=== PATIENT | male | born 1980 | race Caucasian/White ===

== ENCOUNTER 2019-03-03 09:52 | Emergency (ER) | payer MEDICAID ==
[~2019-03-03] VITALS: Ht 165.1 cm; Wt 77.1 kg
[2019-03-03 09:48] VITALS: BP 121/62
[~2019-03-03 09:52] MED LIST: NKM
[2019-03-03 11:21] LABS: APPEARANCE,URINE CLEAR; BILIRUBIN, URINE NEGATIVE (NEGATIVE); COLOR,URINE PALE YELLOW; GLUCOSE, URINE (UA) NEGATIVE (NEGATIVE); KETONES,URINE NEGATIVE (NEGATIVE); LEUKOCYTE ESTERASE ,URINE NEGATIVE (NEGATIVE); NITRITE,URINE NEGATIVE (NEGATIVE); PH,URINE 6 (4.5-8.0); PROTEIN,URINE NEGATIVE (NEGATIVE); UROBILINOGEN,URINE NORMAL MG/DL (0.0-1.0)
[2019-03-03] MEDS ORDERED: DOXYCYCLINE MO100 MG ORAL (13:11)
--- NOTE | 2019-03-03 13:13 | Emergency Room Report ---
History of Present Illness General Chief Complaint: Pain Source: Patient Present Illness HPI 38-year-old homeless male states he has testicular pain that is been going on for1 day duration aching in sensation. Patient states to me is been treated for "endotheliitis" of his testicle with antibiotics at another hospital 2 weeks ago. He states the pain is the same. He is tried to ejaculate to relieve pain with no improvement. He he notes associated dysuria. However he denies any fevers chills, hematuria, abdominal pain. He denies any trauma to the testicle or penis. He denies any recent new sexual partners and denies any history of sexually transmitted infections Allergies: Coded Allergies: No Known Allergies (Unverified , 03/03/19) Patient History Past Medical History: none, psych hx - Bipolar Past Surgical History: none Nursing Documentation-[facility] Past Medical History: No History, Except For History Of Psychiatric Problem: Yes - Bipolar Review of Systems Constitutional: Denies: chills, fever Respiratory: Denies: cough, shortness of breath Cardiovascular: Denies: chest pain, palpitations Gastrointestinal: Denies: abdominal pain, diarrhea, vomiting Genitourinary: Reports: dysuria; Denies: hematuria, pain Musculoskeletal: Denies: back pain, joint swelling Skin: Denies: rash, lesions Neurological: Denies: headache, dizziness Physical Exam Vital Signs Date Time Temp Pulse Resp B/P (MAP) Pulse Ox O2 Delivery O2 Flow Rate FiO2 03/03/19 09:41 97.5 104 16 121/62 (81) 100 Room Air Sp02 EP Interpretation: reviewed General Appearance: well appearing, no apparent distress, non-toxic Head: normocephalic, atraumatic Eyes: bilateral eye normal inspection ENT: hearing grossly normal, EOM grossly intact, moist mucus membranes Neck: supple Respiratory: lungs clear, normal breath sounds, no respiratory distress, speaking full sentences Cardiovascular #1: regular rate, rhythm, normal capillary refill Cardiovascular #2: 2+ radial (R), 2+ radial (L), 2+ femoral (R), 2+ femoral (L) Gastrointestinal: non tender, soft, no mass, no organomegaly, non-distended Rectal: deferred Genitourinary: penis normal, CVA tenderness (R), CVA tenderness (L), other - Mild enlargement of left scrotum. Tenderness to right scrotum more than left. Cremasteric reflex present bilaterally, no skin changes, Musculoskeletal: moves extm spontaneously, no lower extremity edema Neurologic: grossly normal Psychiatric: mood/affect normal Skin: warm/dry, normal turgor Medical Decision Making Diagnostic Impression: Primary Impression: Testicular pain ER Course 38-year-old homeless male states he has testicular pain that is been going on for1 day duration aching in sensation. Patient states to me is been treated for "endotheliitis" of his testicle with antibiotics at another hospital 2 weeks ago. He states the pain is the same. He is tried to ejaculate to relieve pain with no improvement. He he notes associated dysuria. However he denies any fevers chills, hematuria, abdominal pain. He denies any trauma to the testicle or penis. He denies any recent new sexual partners and denies any history of sexually transmitted infections Differential includes sexually transmitted infection, testicular torsion, epididymitis, prostatitis, hydrocele, varicocele Will perform urinary analysis and testicular ultrasound. Laboratory Tests Test 03/03/19 11:06 Urine Color Pale yellow Urine Appearance Clear Urine pH 6 (4.5-8.0) Urine Specific [place] 1.015 (1.005-1.035) Urine Protein Negative (NEGATIVE) Urine Glucose (UA) Negative (NEGATIVE) Urine Ketones Negative (NEGATIVE) Urine Blood Negative (NEGATIVE) Urine Nitrite Negative (NEGATIVE) Urine Bilirubin Negative (NEGATIVE) Urine Urobilinogen Normal MG/DL (0.0-1.0) Urine Leukocyte Esterase Negative (NEGATIVE) Lab Results Impression Unremarkable urinalysis CT/MRI/US Diagnostic Results CT/MRI/US Diagnostic Results : Imaging Test Ordered: Testicular US Impression IMPRESSION: 1. Unremarkable appearance of bilateral testicles, with normal Doppler blood flow. No evidence of testicular torsion. 2. Bilateral epididymides were incompletely visualized as the patient could not tolerate continuing the exam due to severe pain. Reevaluation Time: 13:09 Last Vital Signs Date Time Temp Pulse Resp B/P (MAP) Pulse Ox O2 Delivery O2 Flow Rate FiO2 03/03/19 11:16 97.5 03/03/19 09:48 100 16 121/62 100 Room Air Reevaluation Impression Patient has no signs of torsion.Patient's ultrasound was limited due to his pain. From patient's history likely he was treated for epididymitis which is not improving. Will prescribe a longer course of antibiotics. However recommended if he has worsening pain or symptoms to return to emergency room. Patient understands all instructions. Disposition: HOME, SELF-CARE Condition: Stable Scripts Doxycycline Monohydrate* (DOXYCYCLINE MONOHYDRATE*) 100 Mg Capsule 100 MG ORAL Q12H for 10 Days, #20 CAP 0 Refills Prov: Bakari Mazariegos M.D. 03/03/19 Referrals: NOT CHOSEN IPA/,REFERRING (PCP) [facility] Patient Instructions: Epididymitis, Sexually Transmitted Disease Additional Instructions: Please follow-up at the clinic for reevaluation. Return to emergency room for worsening symptoms Bakari Mazariegos M.D. Mar 03, 2019 13:13
[2019-03-03] MEDS ORDERED: Lidocaine 1% MPF 10mg/ml 5ml INJ ONE (13:15)
[2019-03-03 13:40] VITALS: BP 115/72
--- NOTE | 2019-03-03 14:15 | Diagnostic Imaging Report ---
EXAM: US Scrotum CLINICAL HISTORY: PAIN TECHNIQUE: Real-time ultrasound of the scrotum with color Doppler and image documentation. COMPARISON: No relevant prior studies available. FINDINGS: Limitations: Patient was in severe pain and was unable to complete the entire exam. Right testicle: Right testicle measures 4.1 x 3.0 x 2.3 cm. Patent Doppler flow. No visible masses or microcalcifications. Left testicle: Left testicle measures 4.0 x 2.4 x 2.3 cm. Patent Doppler flow. No visible masses or microcalcifications. Epididymides: Bilateral epididymides were incompletely visualized as the patient could not tolerate continuing the exam due to severe pain. Scrotum: Incompletely visualized due to terminating patient early due to patient pain. IMPRESSION: 1. Unremarkable appearance of bilateral testicles, with normal Doppler blood flow. No evidence of testicular torsion. 2. Bilateral epididymides were incompletely visualized as the patient could not tolerate continuing the exam due to severe pain.
== END 2019-03-03 13:40 | disposition home or self-care (01) ==
LOC: EDBD 09:52 → EMR 11:28
DX: N50.812 Left testicular pain (principal); F31.9 Bipolar disorder, unspecified; Z59.0 Homelessness
CPT/HCPCS: 76870; 81003; 96372; J0696; Z7502; 99284